=== PATIENT | male | born 1980 | race Caucasian/White ===

== ENCOUNTER 2021-10-20 18:31 | Emergency (ER) | payer SELFPAY ==
[2021-10-20 18:31] VITALS: BP 166/100; PULSE 110; RESP 16; TEMP 36.8; O2SAT 98; BMI 23.7
--- NOTE | 2021-10-20 18:52 | PC.NURSE ---
Pt advises he did not want an IV started or any work up started. He only wished to speak with the MD. Advised he felt ok at this time.
--- NOTE | 2021-10-20 19:22 | [facility].EDGENADL ---
ED Disposition Clinical Impression: Opiate overdose Qualifiers: Encounter type: initial encounter Injury intent: accidental or unintentional Qualified Code(s): T40.601A - Poisoning by unspecified narcotics, accidental (unintentional), initial encounter Disposition: Home, Self-Care Condition on Discharge: Good Instructions: DI for Drug Overdose in Adults Additional Instructions: You are being provided with a list of physicians available for follow-up of your condition. Please call a physician on this list to arrange a follow-up appointment as soon as possible. Referrals: Provider,Referral, [Primary Care Provider] - - Critical Care Critical Care Time: No Attestation: On 10/20/21, the high probability of a clinically significant, sudden or life threatening deterioration of the following system(s) required my full and direct attention, intervention and personal management. The time I documented below is in addition to time spent performing reported procedures but includes the following listed in this critical care notation. Medical Decision Making - [place] Inquiry Pt receiving controlled substance: No Vital Signs: 10/20/21 18:31 Temperature 98.3 F Temperature Source Oral Pulse Rate [Right] 110 H Respiratory Rate 16 Blood Pressure [Right Arm] 166/100 H Blood Pressure Mean [Right Arm] 122 Blood Pressure Source [Right Arm] Automatic Cuff Blood Pressure Position [Right Arm] Sitting 02 Sat by Pulse Oximetry 98 Oxygen Delivery Method Room Air Medical Decision Narrative: The patient has been here for over 1 hour and is completely awake and alert with clear speech, normal pulse oximetry. He does not want any further treatment or evaluation. I feel he can be safely discharged. I have declined to prescribe him any medications including Wellbutrin since he does not have any defined follow-up and would simply run out again. General Adult HPI - General Chief complaint: Overdose Stated complaint: poss overdose Time Seen by Provider: 10/20/21 19:22 Mode of Arrival: EMS Limitations: No Limitations Description of Symptoms (Recalled from ER Triage Doc. by RN): pt was found unresponsive outside of his home. Pt given 2mg of narcan and came around. - History of Present Illness HPI narrative: Patient is brought in by ambulance for an apparent overdose. Was reportedly found unresponsive and was given Narcan with latter-day of consciousness. Despite this, the patient believes that his problem was a loss of consciousness from an anxiety or panic attack and not due to drugs. He does admit to taking some tramadol today but he does not think that would have caused his problem. He does have a history of drug abuse and states that he was on Suboxone until about 5 days ago and stopped taking it. Also stopped taking Wellbutrin a few days prior to that. States he was incarcerated June 18 and just got out of a couple of weeks ago. On arrival, he told the nurse that he did not want any IVs or blood work or any testing done, but wanted to talk to the physician. When I speak to him he expresses a wish to have a new prescription for Wellbutrin, although he says he has lost his primary care doctor who left the practice at [facility] recently and he has no provider with which he can follow-up. He does not want to be back on Suboxone. Currently he is asymptomatic. He feels fine. He denies any other drug or alcohol use. - Related Data Previous Rx's Medication Instructions Recorded Ibuprofen [Ibuprofen 800mg 800 mg PO TIDP PRN #30 tab 01/25/20 Tablet] Amoxicillin [Amoxicillin 500mg Tab] 500 mg PO TID 10 Days #30 tab 01/27/20 Allergies Allergy/AdvReac Type Severity Reaction Status Date / Time No Known Allergies Allergy Verified 01/25/20 16:59 [facility] History - Hepatitis A Screen Drug use history?: No High risk sexual behaviors?: No History of sexually transmitted infection?: No Currently emplo
[2021-10-20 19:48] VITALS: BP 148/113; PULSE 108; RESP 16; TEMP 36.8; O2SAT 96
== END 2021-10-20 19:51 | disposition home or self-care (01) ==
PROVIDERS: Emergency Provider Emergency Medicine
DX: T40.601A Poisoning by unspecified narcotics, accidental (unintentional), initial encounter (principal)
CPT/HCPCS: 99281